=== PATIENT | male | born 1950 | race Caucasian/White ===

== ENCOUNTER 2019-05-27 14:15 | Inpatient (IN) | payer MEDICARE, MEDICAID, OTHER ==
[~2019-05-27] VITALS: Ht 172.7 cm; Wt 96.2 kg
[2019-05-27 14:47] LABS: BG BASE EXCESS 2.2 mmol/L (-2.0-2.0); BG BILEVEL POS AIRWAY PRESSURE 15/5; BG CARBOXYHEMOGLOBIN 3.7 % (0.5-1.5); BG DEOXYHEMOGLOBIN 0.8 % (0.0-5.0); BG HCO3 ACT 26.2 mmol/L (22.0-26.0); BG METHEMOGLOBIN 0.3 % (0.0-1.5); BG OXYGEN SATURATION 99.2 % (92.0-98.5); BG OXYHEMOGLOBIN 95.2 % (94.0-97.0); BG PCO2 38.6 mmHg (35.0-45.0); BG PO2 247.2 mmHg (75.0-100.0); BG SAMPLE SITE RIGHT RADIAL; BG TOTAL HEMOGLOBIN 9.5 g/dL (12.0-18.0); BG VENT MODE MASK - BIPAP; BG VENT RATE 15 set
[2019-05-27 14:58] LABS: BASOPHILS % 0.7 % (0.0-2.0); EOSINOPHILS % 0.2 % (0.0-5.0); HEMATOCRIT. 28.3 % (42.0-52.0); HEMOGLOBIN. 9.8 g/dL (14.0-18.0); LYMPHOCYTES % 14.2 % (20.0-50.0); MEAN CORPUSCULAR HEMOGLOBIN 31.7 pg (28.0-32.0); MEAN CORPUSCULAR VOLUME 91.6 fL (80.0-94.0); MEAN PLATELET VOLUME 7.7 fl (7.4-10.4); NEUTROPHILS % 74.9 % (40.0-76.0); PLATELET 177 x1000/uL (130-400); RED BLOOD CELL COUNT 3.09 mill/uL (4.7-6.1); RED CELL DISTRIBUTION WIDTH 19.3 % (11.6-14.6)
[2019-05-27 15:05] LABS: CHLORIDE 93 mEq/L (98-107)
[2019-05-27] MEDS ORDERED: HYDROCODONE/ACETAMINOPHEN 5/325MG TABLET PO PRN (17:45)
[2019-05-27] MEDS ORDERED: DIPHENHYDRAMINE 50MG/ML VIAL IV PRN (17:45)
[2019-05-27] MEDS ORDERED: CEFTRIAXONE 1 G PREMIX 50 ML IV NR (18:00)
[2019-05-27] MEDS: AMLODIPINE 10MG TABLET PO SCH (18:47)
[2019-05-27] MEDS ORDERED: AZITHROMYCIN 500 MG in DEXT 5% WATER 250 ML IV NR (19:00)
[2019-05-27] MEDS ORDERED: FAMOTIDINE 20MG TABLET PO SCH (22:37)
[2019-05-27] MEDS ORDERED: LORAZEPAM 2MG/ML CPJ IM PRN (23:32)
[2019-05-27] MEDS: CLONIDINE 0.1MG TABLET PO PRN (23:53)
[2019-05-28 03:30] VITALS: BP_SYST 150; BP_SYST 155; BP_DIAS 62; BP_DIAS 86
[2019-05-28 06:38] LABS: BASOPHILS % 0.7 % (0.0-2.0); EOSINOPHILS % 0.7 % (0.0-5.0); HEMATOCRIT. 26.4 % (42.0-52.0); LYMPHOCYTES % 16.5 % (20.0-50.0); MEAN CORPUSCULAR HEMOGLOBIN 31.5 pg (28.0-32.0); MEAN CORPUSCULAR VOLUME 92.5 fL (80.0-94.0); MEAN PLATELET VOLUME 7.8 fl (7.4-10.4); MONOCYTES % 13.1 % (2.0-8.0); PLATELET 160 x1000/uL (130-400); RED BLOOD CELL COUNT 2.85 mill/uL (4.7-6.1); RED CELL DISTRIBUTION WIDTH 19.1 % (11.6-14.6)
[2019-05-28 06:51] LABS: CHLORIDE 95 mEq/L (98-107)
[2019-05-28 08:00] VITALS: BP 176/94
[2019-05-28] MEDS: FAMOTIDINE 20MG TABLET PO SCH (08:41)
[2019-05-28] MEDS: AMLODIPINE 10MG TABLET PO SCH (09:00)
[2019-05-28 12:00] VITALS: BP 178/84
[2019-05-28] MEDS: GUAIFENESIN 600MG ER TABLET PO SCH ×2 (13:45→21:53)
[2019-05-28] MEDS: CLONIDINE 0.1MG TABLET PO PRN ×2 (13:48→22:36)
[2019-05-28] MEDS: FOLIC ACID/VITAMIN B COMP W-C TABLET PO SCH (13:48)
[2019-05-28] MEDS: LORAZEPAM 2MG/ML CPJ IV PRN (13:49)
[2019-05-28] MEDS: CALCIUM ACETATE 667MG CAPSULE PO SCH ×2 (13:49→17:50)
[2019-05-28 16:37] VITALS: BP 159/78
[2019-05-28] MEDS ORDERED: CEFTRIAXONE 1 G PREMIX 50 ML IV SCH (17:00)
[2019-05-28] MEDS: CEFTRIAXONE 1 G PREMIX 50 ML IV SCH (18:29)
[2019-05-28] MEDS: AZITHROMYCIN 500 MG in DEXT 5% WATER 250 ML IV SCH (18:29)
[2019-05-28 20:00] VITALS: BP 211/107
[2019-05-28] MEDS ORDERED: GUAIFENESIN-DM 200MG-20MG/10ML UDC ONE (21:46)
[2019-05-28] MEDS ORDERED: GUAIFENESIN 600MG ER TABLET PO ONE (21:54)
[2019-05-28] MEDS ORDERED: CLONIDINE 0.1MG TABLET ONE (22:34)
[2019-05-29] VITALS: BP 135/87
[2019-05-29] MEDS ORDERED: LORAZEPAM 2MG/ML CPJ ONE ×2 (01:33→16:57)
[2019-05-29] MEDS: LORAZEPAM 2MG/ML CPJ IV PRN ×2 (01:37→16:55)
[2019-05-29 04:00] VITALS: BP 206/108
[2019-05-29] MEDS: CLONIDINE 0.1MG TABLET PO PRN ×2 (06:43→12:41)
[2019-05-29] MEDS ORDERED: CLONIDINE 0.1MG TABLET ONE ×2 (06:45→12:44)
[2019-05-29 06:53] LABS: BASOPHILS % 0.5 % (0.0-2.0); EOSINOPHILS % 3.2 % (0.0-5.0); HEMOGLOBIN. 8.6 g/dL (14.0-18.0); LYMPHOCYTES % 14.5 % (20.0-50.0); MEAN CORPUSCULAR HEMOGLOBIN 31.7 pg (28.0-32.0); MEAN CORPUSCULAR VOLUME 92.1 fL (80.0-94.0); MEAN PLATELET VOLUME 7.6 fl (7.4-10.4); MONOCYTES % 13.6 % (2.0-8.0); NEUTROPHILS % 68.2 % (40.0-76.0); PLATELET 137 x1000/uL (130-400); RED BLOOD CELL COUNT 2.72 mill/uL (4.7-6.1); RED CELL DISTRIBUTION WIDTH 18.8 % (11.6-14.6)
[2019-05-29 07:36] LABS: PHOSPHORUS 3.2 mg/dL (2.5-4.9)
[2019-05-29 08:00] VITALS: BP 191/100
[2019-05-29] MEDS ORDERED: CALCIUM ACETATE 667MG CAPSULE ONE ×3 (09:03→16:54)
[2019-05-29] MEDS ORDERED: FAMOTIDINE 20MG TABLET ONE (09:06)
[2019-05-29] MEDS ORDERED: GUAIFENESIN 600MG ER TABLET PO ONE ×2 (09:06→20:59)
[2019-05-29] MEDS: CALCIUM ACETATE 667MG CAPSULE PO SCH ×3 (09:10→16:54)
[2019-05-29] MEDS: GUAIFENESIN 600MG ER TABLET PO SCH ×2 (09:10→20:58)
[2019-05-29] MEDS: FOLIC ACID/VITAMIN B COMP W-C TABLET PO SCH (09:10)
[2019-05-29] MEDS: FAMOTIDINE 20MG TABLET PO SCH (09:10)
[2019-05-29] MEDS: AMLODIPINE 10MG TABLET PO SCH (09:10)
[2019-05-29] MEDS: ALBUTEROL 6.7GM HFA INHALER ORI SCH ×3 (09:14→16:55)
[2019-05-29 12:00] VITALS: BP 186/95
[2019-05-29] MEDS ORDERED: PANT40SU PO (12:49)
[2019-05-29] MEDS ORDERED: TAMS-11 PO (12:54)
[2019-05-29] MEDS ORDERED: FINA5TAB11 PO (12:54)
[2019-05-29] MEDS ORDERED: FOLI-43 PO (12:54)
[2019-05-29] MEDS ORDERED: MELA5TAB3 PO (12:54)
[2019-05-29] MEDS ORDERED: BENA5TAB6 PO (12:57)
[2019-05-29] MEDS ORDERED: ATOR20TA65 PO (12:57)
[2019-05-29 16:00] VITALS: BP 159/88
[2019-05-29] MEDS: AZITHROMYCIN 500 MG in DEXT 5% WATER 250 ML IV SCH (16:55)
[2019-05-29] MEDS: CEFTRIAXONE 1 G PREMIX 50 ML IV SCH (18:00)
[2019-05-29 20:00] VITALS: BP 135/86
[2019-05-30] VITALS: BP 174/88
[2019-05-30] MEDS: CLONIDINE 0.1MG TABLET PO PRN ×3 (01:01→20:34)
[2019-05-30] MEDS ORDERED: CLONIDINE 0.1MG TABLET ONE ×3 (01:03→23:10)
[2019-05-30] MEDS ORDERED: LORAZEPAM 2MG/ML CPJ ONE ×3 (01:34→20:29)
[2019-05-30] MEDS: LORAZEPAM 2MG/ML CPJ IV PRN ×3 (01:35→20:30)
[2019-05-30 04:00] VITALS: BP 162/80
[2019-05-30] MEDS: CALCIUM ACETATE 667MG CAPSULE PO SCH ×3 (06:47→17:03)
[2019-05-30] MEDS ORDERED: CALCIUM ACETATE 667MG CAPSULE ONE ×3 (06:48→17:04)
[2019-05-30 08:00] VITALS: BP 139/105
[2019-05-30] MEDS: FOLIC ACID/VITAMIN B COMP W-C TABLET PO SCH (08:08)
[2019-05-30] MEDS: GUAIFENESIN 600MG ER TABLET PO SCH ×2 (08:08→20:29)
[2019-05-30] MEDS: FAMOTIDINE 20MG TABLET PO SCH (08:08)
[2019-05-30] MEDS: ALBUTEROL 6.7GM HFA INHALER ORI SCH ×3 (08:08→17:03)
[2019-05-30] MEDS: AMLODIPINE 10MG TABLET PO SCH (08:08)
[2019-05-30] MEDS ORDERED: GUAIFENESIN 600MG ER TABLET PO ONE ×2 (08:10→20:30)
[2019-05-30] MEDS ORDERED: FAMOTIDINE 20MG TABLET ONE (08:10)
[2019-05-30] MEDS ORDERED: FOLIC ACID/VITAMIN B COMP W-C TABLET ONE (08:10)
[2019-05-30] MEDS ORDERED: AMLODIPINE 10MG TABLET ONE (08:10)
[2019-05-30 11:24] LABS: BASOPHILS % 0.6 % (0.0-2.0); EOSINOPHILS % 2.6 % (0.0-5.0); HEMOGLOBIN. 7.8 g/dL (14.0-18.0); MEAN CORPUSCULAR HEMOGLOBIN 31.9 pg (28.0-32.0); MEAN CORPUSCULAR VOLUME 93.6 fL (80.0-94.0); MEAN PLATELET VOLUME 7.8 fl (7.4-10.4); MONOCYTES % 14.2 % (2.0-8.0); NEUTROPHILS % 71.6 % (40.0-76.0); PLATELET 110 x1000/uL (130-400); RED BLOOD CELL COUNT 2.45 mill/uL (4.7-6.1); RED CELL DISTRIBUTION WIDTH 18.6 % (11.6-14.6)
[2019-05-30 12:00] VITALS: BP 192/112
[2019-05-30] MEDS: ACETAMINOPHEN 325MG TABLET PO PRN (12:49)
[2019-05-30] MEDS ORDERED: ACETAMINOPHEN 325MG TABLET ONE (12:51)
[2019-05-30] MEDS ORDERED: AZITHROMYCIN 250 MG TABLET ONE ×2 (14:25→17:04)
[2019-05-30] MEDS ORDERED: AZITHROMYCIN 500 MG TABLET PO SCH (15:00)
[2019-05-30 16:00] VITALS: BP 176/104
[2019-05-30] MEDS ORDERED: OLANZAPINE 5MG TABLET ODT ONE (16:26)
[2019-05-30] MEDS: CEFTRIAXONE 1 G PREMIX 50 ML IV SCH (17:03)
[2019-05-30] MEDS: AZITHROMYCIN 250 MG TABLET PO SCH (17:03)
[2019-05-30 20:00] VITALS: BP 200/102
[2019-05-30] MEDS ORDERED: HYDROCODONE/ACETAMINOPHEN 5/325MG TABLET ONE (20:42)
[2019-05-31] VITALS: BP 175/102
[2019-05-31] MEDS ORDERED: LORAZEPAM 2MG/ML CPJ ONE ×3 (01:21→21:22)
[2019-05-31] MEDS: LORAZEPAM 2MG/ML CPJ IV PRN ×2 (02:13→09:04)
[2019-05-31 05:55] VITALS: BP 204/106
[2019-05-31] MEDS ORDERED: CLONIDINE 0.1MG TABLET ONE ×2 (06:05→21:22)
[2019-05-31] MEDS: CALCIUM ACETATE 667MG CAPSULE PO SCH ×3 (06:15→16:27)
[2019-05-31] MEDS: CLONIDINE 0.1MG TABLET PO PRN ×2 (06:16→21:21)
[2019-05-31 08:00] VITALS: BP 180/94
[2019-05-31] MEDS ORDERED: GUAIFENESIN 600MG ER TABLET PO ONE ×2 (08:59→21:09)
[2019-05-31] MEDS ORDERED: AMLODIPINE 10MG TABLET ONE (09:00)
[2019-05-31] MEDS ORDERED: FOLIC ACID/VITAMIN B COMP W-C TABLET ONE (09:00)
[2019-05-31] MEDS ORDERED: FAMOTIDINE 20MG TABLET ONE (09:01)
[2019-05-31] MEDS ORDERED: AZITHROMYCIN 250 MG TABLET ONE ×2 (09:02→09:12)
[2019-05-31] MEDS ORDERED: HYDRALAZINE 20MG/ML VIAL ONE ×2 (09:03→17:52)
[2019-05-31] MEDS: HYDRALAZINE 20MG/ML VIAL IV PRN ×2 (09:03→17:51)
[2019-05-31] MEDS: FOLIC ACID/VITAMIN B COMP W-C TABLET PO SCH (09:04)
[2019-05-31] MEDS: GUAIFENESIN 600MG ER TABLET PO SCH ×2 (09:05→21:06)
[2019-05-31] MEDS: AMLODIPINE 10MG TABLET PO SCH (09:05)
[2019-05-31] MEDS: FAMOTIDINE 20MG TABLET PO SCH (09:05)
[2019-05-31] MEDS: AZITHROMYCIN 250 MG TABLET PO SCH (09:10)
[2019-05-31] MEDS: ALBUTEROL 6.7GM HFA INHALER ORI SCH ×3 (09:10→17:00)
[2019-05-31] MEDS: HALOPERIDOL LACTATE 5MG/ML VIAL IM PRN (11:32)
[2019-05-31 12:00] VITALS: BP 180/90
[2019-05-31] MEDS ORDERED: CLONIDINE HCL 0.2MG/24HR PATCH TD SCH (12:00)
[2019-05-31 16:00] VITALS: BP 205/110
[2019-05-31] MEDS ORDERED: CALCIUM ACETATE 667MG CAPSULE ONE (16:30)
[2019-05-31] MEDS: CEFTRIAXONE 1 G PREMIX 50 ML IV SCH (18:26)
[2019-05-31 20:00] VITALS: BP 179/90
[2019-05-31] MEDS: LORAZEPAM 2MG/ML CPJ IM PRN (21:22)
[2019-05-31] MEDS ORDERED: ONDANSETRON HCL 4MG TABLET ONE (21:45)
[2019-05-31] MEDS ORDERED: ONDANSETRON HCL 4MG/2ML INJ ONE (21:45)
[2019-05-31] MEDS: ONDANSETRON HCL 4MG/2ML INJ IV PRN (21:58)
[2019-06-01] VITALS (16 sets, daily range): BP systolic 89–212; BP diastolic 56–108
[2019-06-01] MEDS: HYDRALAZINE 20MG/ML VIAL IV PRN (01:14)
[2019-06-01] MEDS: ONDANSETRON HCL 4MG/2ML INJ IV PRN (01:15)
[2019-06-01] MEDS ORDERED: ONDANSETRON HCL 4MG/2ML INJ ONE (01:15)
[2019-06-01] MEDS ORDERED: ACETAMINOPHEN 325MG TABLET ONE (01:15)
[2019-06-01] MEDS: ACETAMINOPHEN 325MG TABLET PO PRN (01:15)
[2019-06-01] MEDS ORDERED: HYDRALAZINE 20MG/ML VIAL ONE (01:16)
[2019-06-01] MEDS ORDERED: LORAZEPAM 2MG/ML CPJ ONE (04:41)
[2019-06-01] MEDS: LORAZEPAM 2MG/ML CPJ IM PRN ×2 (05:00→16:14)
[2019-06-01] MEDS: CALCIUM ACETATE 667MG CAPSULE PO SCH ×3 (06:31→16:10)
[2019-06-01 06:50] LABS: HEMATOCRIT. 21.7 % (42.0-52.0); HEMOGLOBIN. 7.4 g/dL (14.0-18.0); MEAN CORPUSCULAR HEMOGLOBIN 31.8 pg (28.0-32.0); MEAN PLATELET VOLUME 8.3 fl (7.4-10.4); PLATELET 91 x1000/uL (130-400); RED BLOOD CELL COUNT 2.33 mill/uL (4.7-6.1)
[2019-06-01 07:16] LABS: PHOSPHORUS 2.5 mg/dL (2.5-4.9)
[2019-06-01] MEDS ORDERED: HYDRALAZINE 10 MG in SODIUM CHLORIDE 0.9% 49.5 ML IV PRN (08:15)
[2019-06-01] MEDS ORDERED: MELOXICAM 7.5MG TABLET ONE (08:24)
[2019-06-01] MEDS ORDERED: GUAIFENESIN 600MG ER TABLET PO ONE (09:04)
[2019-06-01] MEDS ORDERED: AMLODIPINE 10MG TABLET ONE (09:05)
[2019-06-01] MEDS ORDERED: FOLIC ACID/VITAMIN B COMP W-C TABLET ONE (09:05)
[2019-06-01] MEDS ORDERED: FAMOTIDINE 20MG TABLET ONE (09:06)
[2019-06-01] MEDS ORDERED: HALOPERIDOL LACTATE 5MG/ML VIAL IM ONE (09:08)
[2019-06-01] MEDS: GUAIFENESIN 600MG ER TABLET PO SCH (09:12)
[2019-06-01] MEDS: FAMOTIDINE 20MG TABLET PO SCH (09:13)
[2019-06-01] MEDS: FOLIC ACID/VITAMIN B COMP W-C TABLET PO SCH (09:13)
[2019-06-01] MEDS: AMLODIPINE 10MG TABLET PO SCH (09:13)
[2019-06-01] MEDS: HALOPERIDOL LACTATE 5MG/ML VIAL IM PRN (09:13)
[2019-06-01 11:02] LABS: PLATELET ESTIMATE DECREASED
[2019-06-01] MEDS: CLONIDINE 0.1MG TABLET PO PRN (16:58)
[2019-06-01] MEDS: PROPOFOL 10MG/ML 100ML 100 ML IV PRN ×2 (20:02→23:45)
[2019-06-01] MEDS: NICARDIPINE 50 MG in SODIUM CHLORIDE 0.9% 230 ML IV PRN (20:13)
[2019-06-01] MEDS ORDERED: VECURONIUM BROMIDE 10 MG/VIAL IV ONE (20:35)
[2019-06-01] MEDS ORDERED: ETOMIDATE 2MG/ML 10ML VIAL IV ONE (20:35)
[2019-06-01] MEDS: DOXAZOSIN MESYLATE 4MG TABLET PO SCH (21:00)
[2019-06-01] MEDS: HYDRALAZINE HCL 100MG TABLET PO SCH (22:00)
[2019-06-01] MEDS: NYSTATIN 100,000 UNITS/GM CREAM 15GM TOP SCH (23:56)
[2019-06-02] VITALS (96 sets, daily range): BP systolic 83–208; BP diastolic 48–121
[2019-06-02 00:19] LABS: BG BASE EXCESS -2.3 mmol/L (-2.0-2.0); BG CARBOXYHEMOGLOBIN 1.1 % (0.5-1.5); BG DEOXYHEMOGLOBIN 1.1 % (0.0-5.0); BG FRACTION INSPIRED OXYGEN 60; BG HCO3 ACT 23.4 mmol/L (22.0-26.0); BG METHEMOGLOBIN 0.1 % (0.0-1.5); BG OXYGEN SATURATION 98.9 % (92.0-98.5); BG OXYHEMOGLOBIN 97.7 % (94.0-97.0); BG PCO2 44.6 mmHg (35.0-45.0); BG PH 7.337 (7.350-7.450); BG PO2 169.8 mmHg (75.0-100.0); BG SAMPLE SITE RIGHT RADIAL; BG TIDAL VOLUME(mL) 500 mL; BG TOTAL HEMOGLOBIN 7.7 g/dL (12.0-18.0); BG VENT MODE VENT - A/C; BG VENT RATE 16 set
[2019-06-02] MEDS: EPOETIN ALFA 10000UNITS/ML VIAL SUBCUT SCH (01:51)
[2019-06-02] MEDS: PROPOFOL 10MG/ML 100ML 100 ML IV PRN ×5 (04:02→22:06)
[2019-06-02 06:02] LABS: MEAN CORPUSCULAR HEMOGLOBIN 31.7 pg (28.0-32.0); MEAN CORPUSCULAR VOLUME 93.2 fL (80.0-94.0); MEAN PLATELET VOLUME 8.6 fl (7.4-10.4); PLATELET 75 x1000/uL (130-400); RED BLOOD CELL COUNT 1.93 mill/uL (4.7-6.1); RED CELL DISTRIBUTION WIDTH 17.9 % (11.6-14.6)
[2019-06-02 06:11] LABS: HEMOGLOBIN. 6.1 g/dL (14.0-18.0)
[2019-06-02 07:56] LABS: PLATELET ESTIMATE DECREASED
[2019-06-02] MEDS ORDERED: SODIUM CHLORIDE 0.9% 10ML VIAL ONE (08:20)
[2019-06-02] MEDS ORDERED: VECURONIUM BROMIDE 10 MG/VIAL IV ONE (08:20)
[2019-06-02] MEDS ORDERED: ETOMIDATE 2MG/ML 10ML VIAL IV ONE (08:20)
[2019-06-02] MEDS: NYSTATIN 100,000 UNITS/GM CREAM 15GM TOP SCH ×2 (09:00→22:44)
[2019-06-02] MEDS: NICARDIPINE 50 MG in SODIUM CHLORIDE 0.9% 230 ML IV PRN (09:10)
[2019-06-02 10:10] LABS: BG BASE EXCESS -0.3 mmol/L (-2.0-2.0); BG CARBOXYHEMOGLOBIN 1.2 % (0.5-1.5); BG FRACTION INSPIRED OXYGEN 60; BG HCO3 ACT 25.2 mmol/L (22.0-26.0); BG METHEMOGLOBIN 0.3 % (0.0-1.5); BG OXYHEMOGLOBIN 96.5 % (94.0-97.0); BG PH 7.357 (7.350-7.450); BG PO2 113.7 mmHg (75.0-100.0); BG SAMPLE SITE RIGHT RADIAL; BG TIDAL VOLUME(mL) 500 mL; BG TOTAL HEMOGLOBIN 6.6 g/dL (12.0-18.0); BG VENT MODE VENT - A/C; BG VENT RATE 16 set
[2019-06-02] MEDS: PANTOPRAZOLE SODIUM 40 MG/VIAL IV SCH (10:45)
[2019-06-02 13:05] LABS: HEMOGLOBIN 6.8 g/dL (14.0-18.0)
[2019-06-02] MEDS: FUROSEMIDE 40MG TABLET PO SCH (14:02)
[2019-06-02] MEDS: AMLODIPINE 10MG TABLET PO SCH (14:02)
[2019-06-02] MEDS: FOLIC ACID/VITAMIN B COMP W-C TABLET PO SCH (14:03)
[2019-06-02 17:40] LABS: HEMATOCRIT 22.1 % (42.0-52.0); HEMOGLOBIN 7.6 g/dL (14.0-18.0)
[2019-06-02] MEDS: CALCIUM ACETATE 667MG CAPSULE PO SCH (22:43)
[2019-06-02] MEDS: DOXAZOSIN MESYLATE 4MG TABLET PO SCH (22:44)
[2019-06-02] MEDS: HYDRALAZINE HCL 100MG TABLET PO SCH (22:44)
[2019-06-03] VITALS (93 sets, daily range): BP systolic 98–177; BP diastolic 54–90
[2019-06-03] MEDS: PROPOFOL 10MG/ML 100ML 100 ML IV PRN ×7 (01:20→23:57)
[2019-06-03 04:46] LABS: HEMATOCRIT. 22.7 % (42.0-52.0); HEMOGLOBIN. 7.8 g/dL (14.0-18.0); MEAN CORPUSCULAR HEMOGLOBIN 31.5 pg (28.0-32.0); MEAN CORPUSCULAR VOLUME 91.5 fL (80.0-94.0); MEAN PLATELET VOLUME 8.6 fl (7.4-10.4); PLATELET 77 x1000/uL (130-400); RED BLOOD CELL COUNT 2.48 mill/uL (4.7-6.1); RED CELL DISTRIBUTION WIDTH 17.7 % (11.6-14.6)
[2019-06-03] MEDS: CALCIUM ACETATE 667MG CAPSULE PO SCH ×3 (06:33→17:15)
[2019-06-03] MEDS: HYDRALAZINE HCL 100MG TABLET PO SCH ×3 (06:33→21:19)
[2019-06-03 07:29] LABS: ATYPICAL LYMPHOCYTES 1; PLATELET ESTIMATE SLIGHTLY DECREASED
[2019-06-03 09:06] LABS: BG BASE EXCESS -2.3 mmol/L (-2.0-2.0); BG DEOXYHEMOGLOBIN 1.3 % (0.0-5.0); BG FRACTION INSPIRED OXYGEN 60; BG HCO3 ACT 23.6 mmol/L (22.0-26.0); BG METHEMOGLOBIN 0.2 % (0.0-1.5); BG OXYGEN SATURATION 98.7 % (92.0-98.5); BG OXYHEMOGLOBIN 97.5 % (94.0-97.0); BG PCO2 46.2 mmHg (35.0-45.0); BG PH 7.326 (7.350-7.450); BG SAMPLE SITE RIGHT RADIAL; BG TIDAL VOLUME(mL) 500 mL; BG TOTAL HEMOGLOBIN 7.9 g/dL (12.0-18.0); BG VENT MODE VENT - A/C; BG VENT RATE 16 set
[2019-06-03] MEDS: FUROSEMIDE 40MG TABLET PO SCH (09:56)
[2019-06-03] MEDS: PANTOPRAZOLE SODIUM 40 MG/VIAL IV SCH (09:56)
[2019-06-03] MEDS: AMLODIPINE 10MG TABLET PO SCH (09:57)
[2019-06-03] MEDS: FOLIC ACID/VITAMIN B COMP W-C TABLET PO SCH (09:57)
[2019-06-03] MEDS: NYSTATIN 100,000 UNITS/GM CREAM 15GM TOP SCH ×2 (09:58→21:30)
[2019-06-03] MEDS: EPOETIN ALFA 10000UNITS/ML VIAL SUBCUT SCH (21:18)
[2019-06-03] MEDS: DOXAZOSIN MESYLATE 4MG TABLET PO SCH (21:19)
[2019-06-04] VITALS (96 sets, daily range): BP systolic 126–186; BP diastolic 60–123
[2019-06-04] MEDS: PROPOFOL 10MG/ML 100ML 100 ML IV PRN ×3 (03:50→08:14)
[2019-06-04 05:39] LABS: BASOPHILS % 0.9 % (0.0-2.0); EOSINOPHILS % 1.1 % (0.0-5.0); HEMATOCRIT. 25.2 % (42.0-52.0); HEMOGLOBIN. 8.7 g/dL (14.0-18.0); LYMPHOCYTES % 13.3 % (20.0-50.0); MEAN CORPUSCULAR HEMOGLOBIN 31.8 pg (28.0-32.0); MEAN CORPUSCULAR VOLUME 92.4 fL (80.0-94.0); MONOCYTES % 13.8 % (2.0-8.0); NEUTROPHILS % 70.9 % (40.0-76.0); PLATELET 86 x1000/uL (130-400); RED BLOOD CELL COUNT 2.73 mill/uL (4.7-6.1)
[2019-06-04] MEDS: HYDRALAZINE HCL 100MG TABLET PO SCH ×3 (06:12→21:51)
[2019-06-04] MEDS: CALCIUM ACETATE 667MG CAPSULE PO SCH ×3 (06:12→19:07)
[2019-06-04] MEDS: PANTOPRAZOLE SODIUM 40 MG/VIAL IV SCH (08:12)
[2019-06-04] MEDS: FUROSEMIDE 40MG TABLET PO SCH (08:12)
[2019-06-04] MEDS: FOLIC ACID/VITAMIN B COMP W-C TABLET PO SCH (08:12)
[2019-06-04] MEDS: AMLODIPINE 10MG TABLET PO SCH (08:13)
[2019-06-04] MEDS: NYSTATIN 100,000 UNITS/GM CREAM 15GM TOP SCH ×2 (08:15→21:52)
[2019-06-04 08:37] LABS: BG BASE EXCESS -2.9 mmol/L (-2.0-2.0); BG CARBOXYHEMOGLOBIN 0.7 % (0.5-1.5); BG DEOXYHEMOGLOBIN 2.2 % (0.0-5.0); BG HCO3 ACT 22.1 mmol/L (22.0-26.0); BG METHEMOGLOBIN 0.3 % (0.0-1.5); BG OXYGEN SATURATION 97.8 % (92.0-98.5); BG OXYHEMOGLOBIN 96.8 % (94.0-97.0); BG PCO2 39.4 mmHg (35.0-45.0); BG PH 7.367 (7.350-7.450); BG PO2 107.9 mmHg (75.0-100.0); BG SAMPLE SITE RIGHT RADIAL; BG TIDAL VOLUME(mL) 500 mL; BG TOTAL HEMOGLOBIN 7.8 g/dL (12.0-18.0); BG VENT MODE VENT - A/C; BG VENT RATE 18 set
[2019-06-04] MEDS: FENTANYL CITRATE/PF 500 MCG in SODIUM CHLORIDE 0.9% 40 ML IV PRN ×3 (12:59→23:31)
[2019-06-04] MEDS: MIDAZOLAM HCL 100 MG in DEXT 5% WATER 80 ML IV PRN (13:01)
[2019-06-04] MEDS: DOXAZOSIN MESYLATE 4MG TABLET PO SCH (21:52)
[2019-06-05] VITALS (97 sets, daily range): BP systolic 100–170; BP diastolic 56–99
[2019-06-05 05:23] LABS: BASOPHILS % 0.7 % (0.0-2.0); EOSINOPHILS % 3.3 % (0.0-5.0); HEMATOCRIT. 22.8 % (42.0-52.0); HEMOGLOBIN. 7.6 g/dL (14.0-18.0); LYMPHOCYTES % 19.9 % (20.0-50.0); MEAN CORPUSCULAR VOLUME 92.3 fL (80.0-94.0); MEAN PLATELET VOLUME 8.7 fl (7.4-10.4); MONOCYTES % 14.7 % (2.0-8.0); NEUTROPHILS % 61.4 % (40.0-76.0); PLATELET 101 x1000/uL (130-400); RED BLOOD CELL COUNT 2.47 mill/uL (4.7-6.1); RED CELL DISTRIBUTION WIDTH 17.7 % (11.6-14.6)
[2019-06-05] MEDS: FENTANYL CITRATE/PF 500 MCG in SODIUM CHLORIDE 0.9% 40 ML IV PRN ×3 (05:51→16:49)
[2019-06-05] MEDS: HYDRALAZINE HCL 100MG TABLET PO SCH ×3 (05:58→22:00)
[2019-06-05] MEDS: CALCIUM ACETATE 667MG CAPSULE PO SCH ×3 (05:59→17:00)
[2019-06-05 08:58] LABS: BG BASE EXCESS -3.5 mmol/L (-2.0-2.0); BG CARBOXYHEMOGLOBIN 0.6 % (0.5-1.5); BG DEOXYHEMOGLOBIN 5.5 % (0.0-5.0); BG FRACTION INSPIRED OXYGEN 40; BG HCO3 ACT 21.4 mmol/L (22.0-26.0); BG METHEMOGLOBIN 0.4 % (0.0-1.5); BG OXYGEN SATURATION 94.4 % (92.0-98.5); BG OXYHEMOGLOBIN 93.5 % (94.0-97.0); BG PCO2 37.5 mmHg (35.0-45.0); BG PH 7.374 (7.350-7.450); BG PO2 75.5 mmHg (75.0-100.0); BG SAMPLE SITE RIGHT RADIAL; BG TIDAL VOLUME(mL) 500 mL; BG TOTAL HEMOGLOBIN 7.8 g/dL (12.0-18.0); BG VENT MODE VENT - A/C; BG VENT RATE 18 set
[2019-06-05] MEDS: PANTOPRAZOLE SODIUM 40 MG/VIAL IV SCH (09:38)
[2019-06-05] MEDS: FUROSEMIDE 40MG TABLET PO SCH (09:38)
[2019-06-05] MEDS: FOLIC ACID/VITAMIN B COMP W-C TABLET PO SCH (09:38)
[2019-06-05] MEDS: NYSTATIN 100,000 UNITS/GM CREAM 15GM TOP SCH ×2 (09:39→21:59)
[2019-06-05] MEDS: AMLODIPINE 10MG TABLET PO SCH ×2 (09:39→10:17)
[2019-06-05] MEDS: MIDAZOLAM HCL 100 MG in DEXT 5% WATER 80 ML IV PRN (10:20)
[2019-06-05] MEDS: EPOETIN ALFA 10000UNITS/ML VIAL SUBCUT SCH (21:59)
[2019-06-05] MEDS: DOXAZOSIN MESYLATE 4MG TABLET PO SCH (21:59)
[2019-06-06] VITALS (94 sets, daily range): BP systolic 104–165; BP diastolic 55–98
[2019-06-06] MEDS: FENTANYL CITRATE/PF 500 MCG in SODIUM CHLORIDE 0.9% 40 ML IV PRN ×4 (00:15→16:20)
[2019-06-06 05:10] LABS: BASOPHILS % 0.7 % (0.0-2.0); EOSINOPHILS % 1.5 % (0.0-5.0); HEMATOCRIT. 25.8 % (42.0-52.0); HEMOGLOBIN. 8.7 g/dL (14.0-18.0); LYMPHOCYTES % 11.7 % (20.0-50.0); MEAN CORPUSCULAR HEMOGLOBIN 31.3 pg (28.0-32.0); MEAN CORPUSCULAR VOLUME 92.8 fL (80.0-94.0); MEAN PLATELET VOLUME 8.9 fl (7.4-10.4); MONOCYTES % 11.7 % (2.0-8.0); NEUTROPHILS % 74.4 % (40.0-76.0); PLATELET 105 x1000/uL (130-400); RED BLOOD CELL COUNT 2.78 mill/uL (4.7-6.1); RED CELL DISTRIBUTION WIDTH 17.4 % (11.6-14.6)
[2019-06-06] MEDS: HYDRALAZINE HCL 100MG TABLET PO SCH ×3 (05:30→21:15)
[2019-06-06] MEDS: CALCIUM ACETATE 667MG CAPSULE PO SCH ×3 (07:00→17:00)
[2019-06-06] MEDS: PANTOPRAZOLE SODIUM 40 MG/VIAL IV SCH (09:00)
[2019-06-06] MEDS: FUROSEMIDE 40MG TABLET PO SCH (09:41)
[2019-06-06] MEDS: FOLIC ACID/VITAMIN B COMP W-C TABLET PO SCH (09:41)
[2019-06-06] MEDS: NYSTATIN 100,000 UNITS/GM CREAM 15GM TOP SCH ×2 (09:41→21:15)
[2019-06-06] MEDS: ACETAMINOPHEN 325MG TABLET PO PRN (10:07)
[2019-06-06 10:13] LABS: BG BASE EXCESS -1.8 mmol/L (-2.0-2.0); BG CARBOXYHEMOGLOBIN 1.2 % (0.5-1.5); BG DEOXYHEMOGLOBIN 1.9 % (0.0-5.0); BG FRACTION INSPIRED OXYGEN 40; BG HCO3 ACT 23.4 mmol/L (22.0-26.0); BG METHEMOGLOBIN 0.2 % (0.0-1.5); BG OXYGEN SATURATION 98.1 % (92.0-98.5); BG OXYHEMOGLOBIN 96.7 % (94.0-97.0); BG PCO2 41.4 mmHg (35.0-45.0); BG PO2 107.1 mmHg (75.0-100.0); BG SAMPLE SITE RIGHT RADIAL; BG TIDAL VOLUME(mL) 500 mL; BG VENT MODE VENT - A/C; BG VENT RATE 18 set
[2019-06-06] MEDS: MIDAZOLAM HCL 100 MG in DEXT 5% WATER 80 ML IV PRN (18:06)
[2019-06-06] MEDS: DOXAZOSIN MESYLATE 4MG TABLET PO SCH (21:15)
[2019-06-06] MEDS: FENTANYL CITRATE/PF 1,000 MCG in SODIUM CHLORIDE 0.9% 80 ML IV PRN (21:54)
[2019-06-07] VITALS (88 sets, daily range): BP systolic 84–157; BP diastolic 49–87
[2019-06-07 04:51] LABS: BASOPHILS % 0.5 % (0.0-2.0); EOSINOPHILS % 2.3 % (0.0-5.0); HEMATOCRIT. 22.7 % (42.0-52.0); HEMOGLOBIN. 7.7 g/dL (14.0-18.0); LYMPHOCYTES % 15.9 % (20.0-50.0); MEAN CORPUSCULAR HEMOGLOBIN 31.3 pg (28.0-32.0); MEAN CORPUSCULAR VOLUME 92.9 fL (80.0-94.0); MEAN PLATELET VOLUME 8.8 fl (7.4-10.4); MONOCYTES % 12.7 % (2.0-8.0); NEUTROPHILS % 68.6 % (40.0-76.0); PLATELET 98 x1000/uL (130-400); RED BLOOD CELL COUNT 2.45 mill/uL (4.7-6.1)
[2019-06-07] MEDS: HYDRALAZINE HCL 100MG TABLET PO SCH ×3 (06:00→21:28)
[2019-06-07] MEDS: CALCIUM ACETATE 667MG CAPSULE PO SCH ×3 (06:21→17:27)
[2019-06-07] MEDS: FENTANYL CITRATE/PF 1,000 MCG in SODIUM CHLORIDE 0.9% 80 ML IV PRN (08:41)
[2019-06-07] MEDS: FOLIC ACID/VITAMIN B COMP W-C TABLET PO SCH (09:00)
[2019-06-07] MEDS: NYSTATIN 100,000 UNITS/GM CREAM 15GM TOP SCH ×2 (09:00→21:29)
[2019-06-07 09:49] LABS: BG BASE EXCESS -3.5 mmol/L (-2.0-2.0); BG CARBOXYHEMOGLOBIN 1.3 % (0.5-1.5); BG DEOXYHEMOGLOBIN 1.8 % (0.0-5.0); BG FRACTION INSPIRED OXYGEN 40; BG HCO3 ACT 22.5 mmol/L (22.0-26.0); BG METHEMOGLOBIN 0.3 % (0.0-1.5); BG OXYGEN SATURATION 98.2 % (92.0-98.5); BG OXYHEMOGLOBIN 96.6 % (94.0-97.0); BG PCO2 44.7 mmHg (35.0-45.0); BG PH 7.319 (7.350-7.450); BG PO2 105.9 mmHg (75.0-100.0); BG SAMPLE SITE RIGHT RADIAL; BG TIDAL VOLUME(mL) 500 mL; BG VENT MODE VENT - A/C; BG VENT RATE 18 set
[2019-06-07] MEDS: PANTOPRAZOLE SODIUM 40 MG/VIAL IV SCH (09:59)
[2019-06-07] MEDS: FUROSEMIDE 40MG TABLET PO SCH (10:00)
[2019-06-07] MEDS: AMLODIPINE 10MG TABLET PO SCH (10:02)
[2019-06-07] MEDS: MIDAZOLAM HCL 100 MG in DEXT 5% WATER 80 ML IV PRN (12:13)
[2019-06-07] MEDS ORDERED: IPRATROPIUM/ALBUTEROL 0.5-3(2.5)MG/3ML NEB HHN PRN (17:30)
[2019-06-07] MEDS: IPRATROPIUM/ALBUTEROL 0.5-3(2.5)MG/3ML NEB HHN SCH (20:27)
[2019-06-07] MEDS: DOXAZOSIN MESYLATE 4MG TABLET PO SCH (21:28)
[2019-06-07] MEDS: ACETAMINOPHEN 325MG TABLET PO PRN (21:56)
[2019-06-08] VITALS (94 sets, daily range): BP systolic 73–149; BP diastolic 44–94
[2019-06-08] MEDS: IPRATROPIUM/ALBUTEROL 0.5-3(2.5)MG/3ML NEB HHN SCH ×4 (02:04→20:24)
[2019-06-08] MEDS: FENTANYL CITRATE/PF 1,000 MCG in SODIUM CHLORIDE 0.9% 80 ML IV PRN (04:08)
[2019-06-08] MEDS: HYDRALAZINE HCL 100MG TABLET PO SCH ×3 (06:00→21:43)
[2019-06-08 08:23] LABS: BASOPHILS % 0.8 % (0.0-2.0); EOSINOPHILS % 0.8 % (0.0-5.0); HEMATOCRIT. 23.9 % (42.0-52.0); HEMOGLOBIN. 7.9 g/dL (14.0-18.0); LYMPHOCYTES % 11.2 % (20.0-50.0); MEAN CORPUSCULAR HEMOGLOBIN 30.9 pg (28.0-32.0); MEAN CORPUSCULAR VOLUME 93.7 fL (80.0-94.0); MEAN PLATELET VOLUME 9.3 fl (7.4-10.4); MONOCYTES % 13.2 % (2.0-8.0); PLATELET 99 x1000/uL (130-400); RED BLOOD CELL COUNT 2.55 mill/uL (4.7-6.1); RED CELL DISTRIBUTION WIDTH 17.3 % (11.6-14.6)
[2019-06-08] MEDS: PANTOPRAZOLE SODIUM 40 MG/VIAL IV SCH (09:10)
[2019-06-08] MEDS: CALCIUM ACETATE 667MG CAPSULE PO SCH ×3 (09:10→19:29)
[2019-06-08] MEDS: FOLIC ACID/VITAMIN B COMP W-C TABLET PO SCH (09:10)
[2019-06-08] MEDS: NYSTATIN 100,000 UNITS/GM CREAM 15GM TOP SCH ×2 (09:11→21:44)
[2019-06-08] MEDS: AMLODIPINE 10MG TABLET PO SCH (09:11)
[2019-06-08] MEDS: FUROSEMIDE 40MG TABLET PO SCH (09:54)
[2019-06-08 11:11] LABS: BG BASE EXCESS -7.6 mmol/L (-2.0-2.0); BG CARBOXYHEMOGLOBIN 0.4 % (0.5-1.5); BG DEOXYHEMOGLOBIN 4.8 % (0.0-5.0); BG FRACTION INSPIRED OXYGEN 40; BG HCO3 ACT 17.9 mmol/L (22.0-26.0); BG METHEMOGLOBIN 0.1 % (0.0-1.5); BG OXYGEN SATURATION 95.2 % (92.0-98.5); BG OXYHEMOGLOBIN 94.7 % (94.0-97.0); BG PCO2 36.1 mmHg (35.0-45.0); BG PH 7.314 (7.350-7.450); BG PO2 80.3 mmHg (75.0-100.0); BG PRESSURE SUPPORT 8; BG SAMPLE SITE RIGHT RADIAL; BG TOTAL HEMOGLOBIN 7.8 g/dL (12.0-18.0); BG VENT MODE VENT - CPAP
[2019-06-08] MEDS ORDERED: PHENYLEPHRINE 10 MG in DEXT 5% WATER 249 ML IV PRN (14:15)
[2019-06-08] MEDS ORDERED: DIGOXIN 500MCG/2ML AMP IV NR (14:15)
[2019-06-08] MEDS: DOXAZOSIN MESYLATE 4MG TABLET PO SCH (21:42)
[2019-06-09] VITALS (91 sets, daily range): BP systolic 48–248; BP diastolic 22–121
[2019-06-09] MEDS: IPRATROPIUM/ALBUTEROL 0.5-3(2.5)MG/3ML NEB HHN SCH ×3 (01:57→20:41)
[2019-06-09 05:43] LABS: BASOPHILS % 0.5 % (0.0-2.0); EOSINOPHILS % 1.8 % (0.0-5.0); HEMATOCRIT. 24.8 % (42.0-52.0); HEMOGLOBIN. 8.3 g/dL (14.0-18.0); LYMPHOCYTES % 13.4 % (20.0-50.0); MEAN CORPUSCULAR HEMOGLOBIN 30.9 pg (28.0-32.0); MEAN PLATELET VOLUME 9.1 fl (7.4-10.4); MONOCYTES % 9.1 % (2.0-8.0); NEUTROPHILS % 75.2 % (40.0-76.0); PLATELET 112 x1000/uL (130-400); RED BLOOD CELL COUNT 2.69 mill/uL (4.7-6.1); RED CELL DISTRIBUTION WIDTH 16.7 % (11.6-14.6)
[2019-06-09] MEDS: HYDRALAZINE HCL 100MG TABLET PO SCH ×3 (06:08→22:00)
[2019-06-09] MEDS ORDERED: LIDOCAINE HCL 1% 20ML VIAL (Pyxis) INJ ONE (08:16)
[2019-06-09] MEDS: CALCIUM ACETATE 667MG CAPSULE PO SCH ×3 (09:09→18:32)
[2019-06-09] MEDS: FUROSEMIDE 40MG TABLET PO SCH (09:09)
[2019-06-09] MEDS: PANTOPRAZOLE SODIUM 40 MG/VIAL IV SCH (09:10)
[2019-06-09] MEDS: NYSTATIN 100,000 UNITS/GM CREAM 15GM TOP SCH ×2 (09:10→20:39)
[2019-06-09] MEDS: AMLODIPINE 10MG TABLET PO SCH (09:10)
[2019-06-09] MEDS: FOLIC ACID/VITAMIN B COMP W-C TABLET PO SCH (09:10)
[2019-06-09] MEDS ORDERED: DILTIAZEM HCL 5MG/ML 5ML VIAL IV ONE ×4 (14:15→17:45)
[2019-06-09] MEDS ORDERED: DILTIAZEM HCL 125 MG in DEXT 5% WATER 100 ML IV SCH (14:30)
[2019-06-09] MEDS ORDERED: DILTIAZEM HCL 5MG/ML 5ML VIAL IV NR (15:30)
[2019-06-09] MEDS ORDERED: FENTANYL CITRATE/PF 500 MCG in SODIUM CHLORIDE 0.9% 40 ML IV PRN (17:00)
[2019-06-09] MEDS ORDERED: PROPOFOL 10MG/ML 100ML 100 ML IV PRN (17:00)
[2019-06-09] MEDS ORDERED: ETOMIDATE 2MG/ML 10ML VIAL IV ONE (17:55)
[2019-06-09] MEDS ORDERED: VECURONIUM BROMIDE 10 MG/VIAL IV ONE (17:55)
[2019-06-09] MEDS ORDERED: PIPERACILLIN/TAZOBACTAM 2.25 G in DEXTROSE 5% WATER 50 ML IV SCH (18:00)
[2019-06-09] MEDS: ACETAMINOPHEN 325MG TABLET PO PRN (18:32)
[2019-06-09 19:04] LABS: BG BASE EXCESS -3.9 mmol/L (-2.0-2.0); BG CARBOXYHEMOGLOBIN 0.3 % (0.5-1.5); BG FRACTION INSPIRED OXYGEN 100; BG HCO3 ACT 20.9 mmol/L (22.0-26.0); BG METHEMOGLOBIN 0.5 % (0.0-1.5); BG OXYHEMOGLOBIN 96.2 % (94.0-97.0); BG PO2 98.5 mmHg (75.0-100.0); BG SAMPLE SITE RIGHT BRACHIAL; BG TIDAL VOLUME(mL) 500 mL; BG TOTAL HEMOGLOBIN 9.1 g/dL (12.0-18.0); BG VENT MODE VENT - A/C; BG VENT RATE 18 set
[2019-06-09] MEDS ORDERED: VANCOMYCIN 1500MG in DEXTROSE 5% WATER 250ML IV SCH (20:00)
[2019-06-09] MEDS: DOXAZOSIN MESYLATE 4MG TABLET PO SCH (20:38)
[2019-06-09] MEDS: PHENYLEPHRINE 40 MG in DEXT 5% WATER 246 ML IV PRN (21:09)
[2019-06-09] MEDS ORDERED: PIPERACILLIN/TAZOBACTAM 3.375 G/VIAL IV SCH (22:00)
[2019-06-09] MEDS ORDERED: AMIODARONE HCL 150 MG in DEXT 5% WATER 100 ML IV SCH (22:15)
[2019-06-09] MEDS ORDERED: AMIODARONE HCL 900 MG in DEXT 5% WATER 482 ML IV PRN (22:15)
[2019-06-09] MEDS: DOPAMINE 800MG PREMIX (DOUBLE) 250 ML IV PRN (22:51)
[2019-06-09 23:31] LABS: BG BASE EXCESS -7.8 mmol/L (-2.0-2.0); BG CARBOXYHEMOGLOBIN 0.3 % (0.5-1.5); BG DEOXYHEMOGLOBIN 16.1 % (0.0-5.0); BG FRACTION INSPIRED OXYGEN 100; BG HCO3 ACT 19.9 mmol/L (22.0-26.0); BG METHEMOGLOBIN 0.4 % (0.0-1.5); BG OXYGEN SATURATION 83.8 % (92.0-98.5); BG OXYHEMOGLOBIN 83.2 % (94.0-97.0); BG PCO2 51.8 mmHg (35.0-45.0); BG PH 7.203 (7.350-7.450); BG PO2 54.6 mmHg (75.0-100.0); BG SAMPLE SITE LEFT RADIAL; BG TIDAL VOLUME(mL) 500 mL; BG TOTAL HEMOGLOBIN 9.1 g/dL (12.0-18.0); BG VENT MODE VENT - A/C; BG VENT RATE 18 set
[2019-06-10] VITALS (82 sets, daily range): BP systolic 56–168; BP diastolic 23–97
[2019-06-10] MEDS: CEFEPIME 2,000 MG in DEXT 5% WATER 100 ML IV SCH ×2 (00:16→19:55)
[2019-06-10] MEDS: PHENYLEPHRINE 40 MG in DEXT 5% WATER 246 ML IV PRN (01:04)
[2019-06-10] MEDS: IPRATROPIUM/ALBUTEROL 0.5-3(2.5)MG/3ML NEB HHN SCH ×4 (03:16→20:57)
[2019-06-10] MEDS: PHENYLEPHRINE 80 MG in DEXT 5% WATER 492 ML IV PRN ×2 (04:14→18:31)
[2019-06-10] MEDS: HYDRALAZINE HCL 100MG TABLET PO SCH ×3 (05:12→21:06)
[2019-06-10] MEDS: DOPAMINE 800MG PREMIX (DOUBLE) 250 ML IV PRN ×2 (05:28→10:30)
[2019-06-10] MEDS ORDERED: AMIODARONE HCL 150 MG in DEXT 5% WATER 100 ML IV PRN (05:30)
[2019-06-10 05:49] LABS: HEMATOCRIT. 27.9 % (42.0-52.0); HEMOGLOBIN. 9.1 g/dL (14.0-18.0); MEAN CORPUSCULAR HEMOGLOBIN 30.8 pg (28.0-32.0); MEAN CORPUSCULAR VOLUME 93.7 fL (80.0-94.0); MEAN PLATELET VOLUME 9.5 fl (7.4-10.4); PLATELET 194 x1000/uL (130-400); RED BLOOD CELL COUNT 2.97 mill/uL (4.7-6.1); RED CELL DISTRIBUTION WIDTH 16.4 % (11.6-14.6)
[2019-06-10] MEDS ORDERED: NOREPINEPHRINE 32 MG in DEXT 5% WATER 468 ML IV PRN (08:00)
[2019-06-10] MEDS ORDERED: VASOPRESSIN 10 UNIT in SODIUM CHLORIDE 0.9% 99.5 ML IV PRN (08:00)
[2019-06-10] MEDS: AMLODIPINE 10MG TABLET PO SCH (08:07)
[2019-06-10 08:09] LABS: PLATELET ESTIMATE NORMAL
[2019-06-10] MEDS: FOLIC ACID/VITAMIN B COMP W-C TABLET PO SCH (08:44)
[2019-06-10] MEDS: CALCIUM ACETATE 667MG CAPSULE PO SCH ×3 (08:45→18:15)
[2019-06-10] MEDS: NYSTATIN 100,000 UNITS/GM CREAM 15GM TOP SCH ×2 (08:45→21:06)
[2019-06-10 09:30] LABS: BG BASE EXCESS -7.3 mmol/L (-2.0-2.0); BG CARBOXYHEMOGLOBIN 0.2 % (0.5-1.5); BG DEOXYHEMOGLOBIN 12.1 % (0.0-5.0); BG FRACTION INSPIRED OXYGEN 100; BG HCO3 ACT 20.7 mmol/L (22.0-26.0); BG METHEMOGLOBIN 0.2 % (0.0-1.5); BG OXYGEN SATURATION 87.9 % (92.0-98.5); BG OXYHEMOGLOBIN 87.5 % (94.0-97.0); BG PCO2 54.2 mmHg (35.0-45.0); BG PO2 58.2 mmHg (75.0-100.0); BG SAMPLE SITE RIGHT RADIAL; BG TIDAL VOLUME(mL) 500 mL; BG TOTAL HEMOGLOBIN 10.2 g/dL (12.0-18.0); BG VENT MODE VENT - A/C; BG VENT RATE 26 set
[2019-06-10] MEDS: FUROSEMIDE 40MG TABLET PO SCH (11:11)
[2019-06-10] MEDS ORDERED: SODIUM BICARBONATE 8.4% 1 MEQ/ML 50ML SYR IV ONE (11:30)
[2019-06-10 13:14] LABS: BG BASE EXCESS -6.4 mmol/L (-2.0-2.0); BG CARBOXYHEMOGLOBIN 0.8 % (0.5-1.5); BG DEOXYHEMOGLOBIN 9.6 % (0.0-5.0); BG METHEMOGLOBIN 0.6 % (0.0-1.5); BG OXYGEN SATURATION 90.3 % (92.0-98.5); BG PH 7.242 (7.350-7.450); BG PO2 67.4 mmHg (75.0-100.0); BG SAMPLE SITE RIGHT RADIAL; BG TIDAL VOLUME(mL) 500 mL; BG TOTAL HEMOGLOBIN 11.6 g/dL (12.0-18.0); BG VENT MODE VENT - PCV; BG VENT RATE 26 set
[2019-06-10] MEDS: ACETAMINOPHEN 325MG TABLET PO PRN (18:15)
[2019-06-10] MEDS: DOXAZOSIN MESYLATE 4MG TABLET PO SCH (20:34)
== END 2019-06-10 22:20 | disposition expired | DRG 870 ==
LOC: ER 14:15 → EEVIPCON 14:15 → 6WST 16:37 → EDBEDREQ 16:41 → EDBEDREQSVC 16:41 → EDBEDREQ 16:42 → EDBEDREQTM 17:24 → EDBEDREQSVC 17:24 → ENRESERV 05-28 01:55 → 7EST 05-28 17:50 → MICUSO 06-01 18:30 → CVICU 06-07 18:47
PROVIDERS: ADMIT Internal Medicine; ATTEND Internal Medicine
PROC: 5A1D70Z Performance of Urinary Filtration, Intermittent, Less than 6 Hours Per Day (ICD-10-PCS; 2019-05-27)
PROC: 5A09357 Assistance with Respiratory Ventilation, Less than 24 Consecutive Hours, Continuous Positive Airway Pressure (ICD-10-PCS; 2019-05-27)
PROC: 5A1D70Z Performance of Urinary Filtration, Intermittent, Less than 6 Hours Per Day (ICD-10-PCS; 2019-05-29)
PROC: 5A1955Z Respiratory Ventilation, Greater than 96 Consecutive Hours (ICD-10-PCS; principal; 2019-06-01)
PROC: 0BH17EZ Insertion of Endotracheal Airway into Trachea, Via Natural or Artificial Opening (ICD-10-PCS; 2019-06-01)
PROC: 06HY33Z Insertion of Infusion Device into Lower Vein, Percutaneous Approach (ICD-10-PCS; 2019-06-01)
PROC: 5A1D70Z Performance of Urinary Filtration, Intermittent, Less than 6 Hours Per Day (ICD-10-PCS; 2019-06-01)
PROC: 0BH17EZ Insertion of Endotracheal Airway into Trachea, Via Natural or Artificial Opening (ICD-10-PCS; 2019-06-02)
PROC: 30233N1 Transfusion of Nonautologous Red Blood Cells into Peripheral Vein, Percutaneous Approach (ICD-10-PCS; 2019-06-02)
PROC: 5A1D70Z Performance of Urinary Filtration, Intermittent, Less than 6 Hours Per Day (ICD-10-PCS; 2019-06-03)
PROC: 5A1D70Z Performance of Urinary Filtration, Intermittent, Less than 6 Hours Per Day (ICD-10-PCS; 2019-06-05)
PROC: 5A09357 Assistance with Respiratory Ventilation, Less than 24 Consecutive Hours, Continuous Positive Airway Pressure (ICD-10-PCS; 2019-06-08)
PROC: 5A1D70Z Performance of Urinary Filtration, Intermittent, Less than 6 Hours Per Day (ICD-10-PCS; 2019-06-08)
PROC: 5A09357 Assistance with Respiratory Ventilation, Less than 24 Consecutive Hours, Continuous Positive Airway Pressure (ICD-10-PCS; 2019-06-09)
PROC: 5A1D70Z Performance of Urinary Filtration, Intermittent, Less than 6 Hours Per Day (ICD-10-PCS; 2019-06-09)
PROC: 02HV33Z Insertion of Infusion Device into Superior Vena Cava, Percutaneous Approach (ICD-10-PCS; 2019-06-09)
PROC: B548ZZA Ultrasonography of Superior Vena Cava, Guidance (ICD-10-PCS; 2019-06-09)
DX: A41.9 Sepsis, unspecified organism (principal); I50.33 Acute on chronic diastolic (congestive) heart failure; N18.6 End stage renal disease; J18.9 Pneumonia, unspecified organism; R65.21 Severe sepsis with septic shock; J96.01 Acute respiratory failure with hypoxia; G93.41 Metabolic encephalopathy; I13.2 Hypertensive heart and chronic kidney disease with heart failure and with stage 5 chronic kidney disease, or end stage renal disease; I42.9 Cardiomyopathy, unspecified; Z94.4 Liver transplant status; E87.1 Hypo-osmolality and hyponatremia; E87.4 Mixed disorder of acid-base balance; D61.818 Other pancytopenia; J44.0 Chronic obstructive pulmonary disease with (acute) lower respiratory infection; I48.92 Unspecified atrial flutter; F41.9 Anxiety disorder, unspecified; E87.5 Hyperkalemia; E66.01 Morbid (severe) obesity due to excess calories; F32.9 Major depressive disorder, single episode, unspecified; E78.5 Hyperlipidemia, unspecified; I48.91 Unspecified atrial fibrillation; E78.1 Pure hyperglyceridemia; Z99.2 Dependence on renal dialysis; Z86.73 Personal history of transient ischemic attack (TIA), and cerebral infarction without residual deficits; Z91.19 Patient's noncompliance with other medical treatment and regimen; Z68.32 Body mass index [BMI] 32.0-32.9, adult; Z91.11 Patient's noncompliance with dietary regimen; Z78.1 Physical restraint status; Z03.818 Encounter for observation for suspected exposure to other biological agents ruled out
CPT/HCPCS: 31500; 36415; 36600; 71045; 76937; 80048; 80053; 82375; 82805; 82962; 83605; 83735; 83880; 84100; 84145; 84478; 84484; 85014; 85018; 85025; 86850; 86900; 86920; 87070; 87077; 87635; 87804; 93005; 94002; 94003; 94640; 94660; 99291; C1725; C9113; J0282; J0360; J0456; J0692; J0696; J0885; J1160; J1265; J1630; J2060; J2250; J2370; J2405; J2543; J2704; J3010; J3370; J3490; J7050; J7060; P9016; Q0162